=== PATIENT | male | born 1990 | race Caucasian/White ===

== ENCOUNTER 2017-12-19 20:44 | Emergency (ER) | payer OTHER ==
[~2017-12-19 20:44] MED LIST: ACULAR5 ML OPH; AMOXIL500 MG PO; BACTRIM DS 8001 TAB PO; BLEPH-105 ML OPH; TRAMADOL HCL50 MG PO
--- NOTE | 2017-12-20 00:42 | ED GENERAL ADULT ---
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 PT HAS WRIST WRAPPED, BLEEDING CONTROLLED. UNSURE OF LAST TETANUS. Triage Nurses Notes Reviewed? yes Onset: Abrupt Duration: hour(s): (3), constant, continues in ED Timing: single episode today Injury Environment: work Severity: moderate, severe Severity Numbers: 6 No Modifying Factors: none Modifying Factors: Worsens With: movement. HPI: 27 year old male with no pmh presents for eval of a lac to his right wrist. Patient reports he cut it on a piece of sharp metal at work. He is unsure of his last tetanus shot. He also reports pain in the wrist from when he hit it against the metal. No swelling bleeding is controlled. Unsure of tetanus. No numbness or tingling. No other injuries. (Lalo Georges) Past History Travel History Traveled to [place] past 21 day No Medical History Any Pertinent Medical History? 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 No (Lalo Georges) Review of Systems Review of Systems Constitutional: Reports: no symptoms. EENTM: Reports: no symptoms. Respiratory: Reports: no symptoms. Cardiovascular: Reports: no symptoms. GI: Reports: no symptoms. Genitourinary: Reports: no symptoms. Musculoskeletal: Reports: joint pain. Skin: Reports: see HPI (laceration). Neurological/Psychological: Reports: no symptoms. Hematologic/Endocrine: Reports: no symptoms. Immunologic/Allergic: Reports: no symptoms. All Other Systems: Reviewed and Negative (Lalo Georges) Physical Exam Physical Exam General Appearance: well developed/nourished, no apparent distress, alert, awake Head: atraumatic, normal appearance Eyes: Bilateral: normal appearance, EOMI. Ears, Nose, Throat: hearing grossly normal Neck: normal inspection, supple, full range of motion Respiratory: no respiratory distress Cardiovascular: normal peripheral pulses Peripheral Pulses: 2+ radial (R), 2+ radial (L) Extremities: there is a 2 cm linear horizontal laceration located on the right anterior ulnar wrist. No active bleeding. Subcutaneous tissue is visible no foreign bodies. Full range of motion of the wrist is intact. There is some surrounding soft tissue swelling and tenderness. No gross deformity neurovascular supply intact no snuffbox tenderness Neurologic/Psych: no motor/sensory deficits, awake, alert, oriented x 3 Skin: intact, normal color, warm/dry Core Measures ACS in differential dx? No CVA/TIA Diagnosis: No Sepsis Present: No Sepsis Focused Exam Completed? No (Lalo Georges) Progress Differential Diagnoses I considered the following diagnoses in my evaluation of the patient: [ Laceration, tendon injury, fracture, contusion, sprain, foreign body] Plan of Care: Orders Procedure Date/time Status Durable Medical Equipment 12/20 0050 Active Laceration to the right wrist. No foreign bodies noted. Patient did hit his wrist against a piece of metal x-rays are negative for fracture or foreign body. Tetanus was updated. The laceration was irrigated with copious amounts of sterile water. Betadine applied. 1% lidocaine without epi was used for local pain control. 5 4-0 nylon simple interrupted sutures used to local pain control. Patient tolerated well. Sterile dressing and volar splint applied. Discussed wound care procedures. Wear splint while sutures are in place to prevent dehiscence. Patient will be covered with antibiotics due to contaminated laceration. Discussed return precautions in detail return in 7-10 days for suture removal patient agrees Diagnostic Imaging: Viewed by Me: Radiology Read. Discussed w/RAD: Radiology Read. Radiology Impression: PATIENT: BISHOP CHAKRABORTY PRESENT AGE: 27 PATIENT ACCOUNT NO: [id number] : 89 LOCATION: [facility] ORDERING PHYSICIAN: Lalo JONES SERVICE DATE: 12/20/17 EXAM TYPE: RAD - XRY-WRIST COMPLETE-RIGHT EXAMINATION: XR WRIST, RIGHT CLINICAL INFORMATION: Right wrist pain after hitting on wall COMPARISON: 07/26/2010 TECHNIQUE: Three views of the right wrist. FINDINGS: There is soft tissue irregularity with minimal soft tissue gas adjacent to the distal ulna. No acute fracture or dislocation. The carpal rows are appropriately aligned. Joint spaces are maintained. IMPRESSION: Soft tissue injury overlies the distal ulna. No acute fracture or malalignment. DICTATED BY: Naeem Herrera MD DATE/TIME DICTATED: 12/20/1740 PHOTO LAB SPECIALIST:HEMA DATE/TIME TRANSCRIBED:12/20/1740 CONFIDENTIAL, DO NOT COPY WITHOUT APPROPRIATE AUTHORIZATION. Initial ED EKG: none (Lalo Georges) Departure Departure Disposition: HOME OR SELF CARE Condition: Stable Clinical Impression Primary Impression: Laceration Referrals: Alyssia LIGHT,Martin Vega (PCP/Family) Additional Instructions: Keep the area clean and dry change dressing once daily. Wear splint for the next week. Tylenol ibuprofen for pain. Take antibiotics for the full course. Brandon for signs of infection like redness swelling discharge or pain. Monitor symptoms return with any concerns Departure Forms: Customer Survey General Discharge Information Prescriptions: Current Visit Scripts Cephalexin (Keflex) 1 CAP PO TID #21 CAP (Lalo Georges) PA/[employer] Co-Sign Statement Statement: ED Attending supervision documentation- [] I saw and evaluated the patient. I have also reviewed all the pertinent lab results and diagnostic results. I agree with the findings and the plan of care as documented in the PA's/[employer]'s documentation. [x] I have reviewed the ED Record and agree with the PA's/[employer]'s documentation. [] Additions or exceptions (if any) to the PAs/[employer]'s note and plan are summarized below: [] (Garrett LIGHT,Carlo Valladares) Procedures Laceration/Wound Repair Laceration/Wound Repair: Wound Location: upper extremity Wound's Depth, Shape: linear, subcutaneous Wound Length (cm): 2 Wound Explored: no foreign body removed, contaminated, irrigated extensively Irrigated w/ Saline (ccs): 500 Betadine Prep? Yes Anesthesia: 1% lidocaine Volume Anesthetic (ccs): 5 Wound Debrided: minimal Wound Repaired With: sutures Suture Size/Type: 4:0, nylon Number of Sutures: 5 Layer Closure? No Splint Applied? Yes By Who? by me Type of Splint Applied: volar Sling Applied? No Tetanus Status: up to date (today) (Lalo Georges) Critical Care Note Critical Care Note Critical Care Time: non-applicable (Lalo Georges)
--- NOTE | 2017-12-20 00:46 | RADIOLOGY REPORT ---
EXAMINATION: XR WRIST, RIGHT CLINICAL INFORMATION: Right wrist pain after hitting on wall COMPARISON: 07/26/2010 TECHNIQUE: Three views of the right wrist. FINDINGS: There is soft tissue irregularity with minimal soft tissue gas adjacent to the distal ulna. No acute fracture or dislocation. The carpal rows are appropriately aligned. Joint spaces are maintained. IMPRESSION: Soft tissue injury overlies the distal ulna. No acute fracture or malalignment.
[2017-12-20] MEDS ORDERED: KEFLEX500 M1 PO (00:53)
[2017-12-20 00:58] VITALS: BP 122/83
== END 2017-12-20 00:59 ==
LOC: ERH 20:44
DX: S61.511A Laceration without foreign body of right wrist, initial encounter (principal); W45.8XXA Other foreign body or object entering through skin, initial encounter; Y92.9 Unspecified place or not applicable
CPT/HCPCS: 73110-RT; 90471; 90714; J2001

== ENCOUNTER 2017-12-29 09:58 | Emergency (ER) | payer OTHER ==
[~2017-12-29] VITALS: Ht 182.9 cm; Wt 99.8 kg
[~2017-12-29 09:58] MED LIST changes: +KEFLEX500 M1 PO
[2017-12-29 10:01] VITALS: BP 138/87
--- NOTE | 2017-12-29 10:12 | ED GENERAL ADULT ---
History of Present Illness General Chief Complaint: Suture Removal/Wound Recheck Stated Complaint: SUTURE REMOVAL Source: patient Exam Limitations: no limitations Vital Signs & Intake/Output Vital Signs & Intake/Output Vital Signs Date Time Temp Pulse Resp B/P B/P Pulse O2 O2 Flow FiO2 Mean Ox Delivery Rate 12/29 1001 97.4 78 20 138/87 98 Room Air Allergies Coded Allergies: No Known Allergies (08/05/17) Reconcile Medications No Known Home Medications Triage Note: PT TO ED FOR SUTURE REMOVAL TO RIGHT WRIST, PLACED 12/19 HERE. Triage Nurses Notes Reviewed? yes HPI: Patient presented to the emergency department 10 days ago with a laceration to his right dorsal wrist from metal at work. Tetanus was updated, wound was irrigated, and 5 simple interrupted sutures were placed. He returns today for wound check and suture removal. The wound is very well-appearing without any streaking redness or surrounding erythema. No other concerns at this time. Past History Travel History Traveled to [place] past 21 day No Medical History Any Pertinent Medical History? 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 No Review of Systems Review of Systems Constitutional: Reports: see HPI. Denies: chills, diaphoresis, fever. Skin: Reports: see HPI, lesions. Physical Exam Physical Exam General Appearance: well developed/nourished, no apparent distress, alert, awake , comfortable Skin: intact, normal color, warm/dry, well-healing laceration with 5 simple interrupted sutures visible Core Measures ACS in differential dx? No CVA/TIA Diagnosis: No Sepsis Present: No Sepsis Focused Exam Completed? No Progress Differential Diagnoses I considered the following diagnoses in my evaluation of the patient: Laceration , wound, patient, cellulitis Plan of Care: All 5 simple interrupted sutures removed without consultation. Patient will follow up as needed with primary care for further symptoms. Initial ED EKG: none Departure Departure Time of Disposition: 1010 Disposition: HOME OR SELF CARE Condition: Stable Clinical Impression Primary Impression: Visit for suture removal Referrals: Alyssia LIGHT,Martin Vega (PCP/Family) Additional Instructions: Please return to the ER or follow up with her primary physician for any redness or other consultations that you notice. Departure Forms: Customer Survey General Discharge Information Prescriptions: Current Visit Scripts No Known Home Medications Critical Care Note Critical Care Note Critical Care Time: non-applicable
== END 2017-12-29 10:23 ==
LOC: ERH 09:58
DX: Z48.02 Encounter for removal of sutures (principal)